=== PATIENT | female | born 1975 | race Caucasian/White ===

== ENCOUNTER 2019-04-25 12:59 | Outpatient (CLI) | payer OTHER, SELFPAY ==
--- NOTE | ~2019-04-25 | MM_ITS ---
EXAMINATION: MM screening flory BI w faustino HISTORY: Screening mammogram TECHNIQUE: Craniocaudal and mediolateral oblique 3-D tomosynthesis images were obtained and synthetic 2-D images were generated. CAD analysis was submitted and interpreted. COMPARISON: None, baseline BREAST PARENCHYMAL COMPOSITION: The breasts are heterogeneously dense, which may obscure small masses . FINDINGS: RIGHT BREAST: There is no evidence of suspicious mass, calcification, or architectural distortion to suggest malignancy. LEFT BREAST: Focal asymmetry is present in the posterior third of the upper breast. IMPRESSION: 1. Focal asymmetry of the left breast. 2. Additional mammographic views and possible breast ultrasound are recommended to evaluate for malig izzy and establish a baseline given that this is the first mammographic examination. BI-RADS Category 0: Incomplete: Needs additional imaging evaluation. 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 Focal asymmetry of the left breast. 2. Additional mammographic views and possible breast ultrasound are recommended to evaluate for malignancy and establish a baseline given that this is the fir st mammographic examination. BI-RADS Category 0: Incomplete: Needs additional imaging evaluation.
== END 2019-04-25 13:00 | disposition home or self-care (01) ==
PROVIDERS: PCP Family Medicine; Visit Provider Nurse Practitioner Obstetrics & Gynecology
DX: Z12.31 Encounter for screening mammogram for malignant neoplasm of breast (principal)
CPT/HCPCS: 77063; 77067

== ENCOUNTER 2019-05-03 09:49 | Outpatient (CLI) | payer OTHER, SELFPAY ==
--- NOTE | ~2019-05-03 | MMUS_ITS ---
EXAMINATION: MM diagnostic flory LT w faustino, US breast LT limited HISTORY: Focal asymmetry of the left breast on baseline screening mammogram TECHNIQUE: Additional 3-D tomosynthesis images of the left breast were performed and synthetic 2-D im ages were generated. CAD analysis was submitted and interpreted. High resolution limited left breast ultrasound was performed. COMPARISON: 02/24/2020 FINDINGS: MAMMOGRAPHIC FINDINGS: No definite focal asymmetry persists in the left breast with spot compression views. There is no susp icious calcification or architectural distortion. ULTRASOUND: There is no evidence of focal abnormal solid or cystic lesion in the vicinity of the mammographic fin ding in question. IMPRESSION: 1. No mammographic or sonographic evidence of malignancy. 2. Recommend routine screening mammography in one year. BI-RADS Category 1: Negative Reviewed, dictated and finalized at location A. SPRAYER IMPRESSION: 1. No mammographic or sonographic evidence of malignancy. 2. Recommend routine screening mammography in one year. BI-RADS Category 1: Negative
== END 2019-05-03 09:50 | disposition home or self-care (01) ==
LOC: CHSIMG 09:51
PROVIDERS: Visit Provider Nurse Practitioner Obstetrics & Gynecology
DX: R92.8 Other abnormal and inconclusive findings on diagnostic imaging of breast (principal)
CPT/HCPCS: 76642; 77061; 77065; G0279

== ENCOUNTER 2020-05-05 10:48 | Outpatient (CLI) | payer OTHER, SELFPAY ==
--- NOTE | ~2020-05-05 | MM_ITS ---
EXAMINATION: MM screening flory BI w faustino HISTORY: Screening mammogram TECHNIQUE: Craniocaudal and mediolateral oblique 3-D tomosynthesis images were obtained and synthetic 2-D images were generated. CAD analysis was submitted and interpreted. COMPARISON: May 03, 2019 left diagnostic digital mammogram and limited left breast ultrasound 04/25/2019 bilateral digital screening mammogram BREAST PARENCHYMAL COMPOSITION: The breasts are heterogeneously dense, which may obscure small masses . FINDINGS: There is no evidence of suspicious mass, calcification, or architectural distortion to sugg est malignancy in either breast. There has been no suspicious interval change. IMPRESSION: 1. No mammographic evidence of malignancy. 2. Recommend routine screening mammography in one year. BI-RADS Category 1: Negative Reviewed, dictated and finalized at location A. [place] [employer]
== END 2020-05-05 10:49 | disposition home or self-care (01) ==
LOC: CHSIMG 10:49
PROVIDERS: Visit Provider Nurse Practitioner Obstetrics & Gynecology
DX: Z12.31 Encounter for screening mammogram for malignant neoplasm of breast (principal)
CPT/HCPCS: 77063; 77067

== ENCOUNTER 2021-06-11 11:46 | Outpatient (CLI) | payer OTHER, SELFPAY ==
--- NOTE | ~2021-06-11 | MM_ITS ---
EXAMINATION: MM screening [facility] BI w faustino HISTORY: Screening mammogram TECHNIQUE: Craniocaudal and mediolateral oblique 3-D tomosynthesis images were obtained and synthetic 2-D images were generated. CAD analysis was submitted and interpreted. COMPARISON: 05/15/2020, 05/03/2019, 04/25/2019 BREAST PARENCHYMAL COMPOSITION: There are scattered areas of fibroglandular density. FINDINGS: There is no suspicious mass, calcification, or architectural distortion to suggest malignan cy in either breast. There has been no suspicious interval change. IMPRESSION: 1. No mammographic evidence of malignancy. 2. Recommend routine screening mammography in one year. BI-RADS Category 1: Negative Reviewed, dictated and finalized at location A.
== END 2021-06-11 11:47 | disposition home or self-care (01) ==
LOC: CHSIMG 11:48
PROVIDERS: PCP Nurse Practitioner Family; Visit Provider Obstetrics & Gynecology Gynecology
DX: Z12.31 Encounter for screening mammogram for malignant neoplasm of breast (principal)
CPT/HCPCS: 77063; 77067

== ENCOUNTER 2022-06-17 11:43 | Outpatient (CLI) | payer OTHER, SELFPAY ==
--- NOTE | ~2022-06-17 | MM_ITS ---
EXAMINATION: MM screening flory BI w faustino HISTORY: Screening TECHNIQUE: Craniocaudal and mediolateral oblique 3-D tomosynthesis images were obtained and synthetic 2-D images were generated. CAD analysis was submitted and interpreted. COMPARISON: Comparison to multiple prior studies sequentially, with oldest reviewed study dated 04/25. BREAST PARENCHYMAL COMPOSITION: There are scattered areas of fibroglandular density. FINDINGS: There is no evidence of suspicious mass, calcification, or architectural distortion to sugg est malignancy in either breast. There has been no suspicious interval change. IMPRESSION: 1. No mammographic evidence of malignancy. 2. Recommend routine screening mammography in one year. BI-RADS Category 1: Negative Reviewed, dictated and finalized at location A.
== END 2022-06-17 11:44 | disposition home or self-care (01) ==
LOC: CHSIMG 11:46
PROVIDERS: PCP Family Medicine; Visit Provider Nurse Practitioner Obstetrics & Gynecology
DX: Z12.31 Encounter for screening mammogram for malignant neoplasm of breast (principal)
CPT/HCPCS: 77063; 77067

== ENCOUNTER 2022-07-12 00:29 | Day surgery (SDC) | payer OTHER, SELFPAY ==
[2022-07-05 10:20] VITALS: BMI 35.5
--- NOTE | 2022-07-05 10:25 | PC.NURSE ---
Report to the Outpatient Waiting Room, entrance under the green pavilion located off [facility], at time 0730 on date 07/12/22. Planned Procedure Time: 0930. Time changes happen often and if your time is changed the preop area will call you the afternoon before. - You and your visitor will be asked to self-screen and do not enter if you have any COVID symptoms. - A mask is optional within the hospital at this time. Patients may have clear liquids (water, carbonated beverages, clear teas, apple juice) until 3 hours prior to surgery with a maximum of 20 ounces. - No food from midnight until time of surgery Take the following medications with a SIP of water the morning of surgery: N/A DO NOT STOP ANY OF YOUR OTHER PRESCRIPTION MEDICATIONS PRIOR TO SURGERY EXCEPT THE FOLLOWING Medications to discontinue per physician: N/A Date to take last dose: N/A Please no make-up, nail maori, hairspray, perfume, deodorant, or body powder the day of surgery. No jewelry (including any body piercings) or valuables the day of surgery, leave them at home. Please take a shower or bath the night before, or the morning of, surgery with an antibacterial soap. Wear comfortable, loose fitting clothing. - Jewelry must be removed prior to entering the operating room. Rings and piercings that are not removed may be cut off. - The hospital will not accept responsibility for valuables. - Please leave all valuables, including medications, at home the day of surgery. If you are going home after surgery, a licensed milk pickup truck driver must drive you home. - NO public transportation without another adult if you receive anesthesia. - We recommend that an adult stay with you for 24 hours following discharge. - We also recommend that you do not drive, make important decision, drink alcoholic beverages, or take any drugs that were not prescribed by your health care provider for at least 24 hours after your discharge time. Follow any additional instructions given to you from your surgeon. If you or anyone in your household have experienced Covid symptoms in the past week, please notify your surgeon or the nurse liaison at the phone number below for possible testing. Telephone instructions given to PT - SHANON THOMAS and asked if any additional questions and then verbalized understanding. Patient advised to call surgeon office or pre surgery nurse liaison [phone] if any additional questions.
[2022-07-12] VITALS (9 sets, daily range): BP systolic 128–162; BP diastolic 74–98; PULSE 61–84; RESP 13–16; TEMP 36.2–36.6; O2SAT 98–100
[2022-07-12] MEDS: LACTATED RINGERS 1,000 ML 30 ML IV CONT ×2 (08:15→11:20)
[2022-07-12] MEDS: ACETAMINOPHEN 500 MG TABLET 1000 MG PO (08:30)
[2022-07-12] MEDS: KETOROLAC 15 MG/ML VIAL (*BKC) IV PUSH (08:30)
--- NOTE | 2022-07-12 08:36 | P.PNAN_ITS ---
Anes - Initial Pre Proc Eval Procedure: Operation Date: 07/12/22 09:30 Proposed Procedures p Hysteroscopy Dilation and Curettage, Cecilia Endometrial Ablation, - José Miguel Mchugh MD s Laparoscopic Right Ovarian Cystectomy, Bilateral Laparoscopic Salpingectomy - José Miguel Mchugh MD Date/Time: 07/12/22 08:36 Surgeon: José Miguel Mchugh MD Pre Op Diagnosis: menorrhagia, right ovarian cyst, desires steriliza Patient Data Age: 46 Gender: F Height: 1.68 m Weight: 99.8 kg Allergies Allergy/AdvReac Type Severity Reaction Status Date / Time No Known Allergies Allergy Verified 07/12/22 08:30 Home Medications Medication Instructions Recorded Confirmed Type levonorgestrel 21 mcg/24 hours (8 1 device intrauterine ONCE 05/20/20 07/12/22 History yrs) 52 mg intrauterine device (Mirena) Patient hx anesthesia problems: none Family hx anesthesia problems: none Results Review: All pre-operative results and documents have been reviewed as part of the pre- operative evaluation. 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 Informed Consent: The patient's anesthetic plan and its attendant risks and benefits were discussed with the patient/family/POA. Questions were solicited and answers provided to the satisfaction of the patient/family/POA.
--- NOTE | 2022-07-12 09:36 | WPDHPUPDATE1 ---
History and Physical Update Update Date/Time: 07/12/22 09:36 History and Physical has been reviewed, including an updated exam of the patient. There are NO changes in the patient's condition. Risks, benefits, and alternatives have been discussed and questions answered. Patient agrees to proceed with procedure.
[2022-07-12] MEDS: KETOROLAC 30 MG/ML VIAL (*BKC) 15 MG IV PUSH (10:55)
--- NOTE | 2022-07-12 11:11 | W.PM.PROC2 ---
Procedure Note - Detailed Date of Procedure 07/12/22 Pre-op Diagnosis menorrhagia, right ovarian cyst, desires sterilization Post-op Diagnosis Same Procedure Performed Laparoscopic bilateral salpingectomy, right ovarian cystectomy, endometrial ablation with hysteroscopy. Surgeon José Miguel Mchugh MD Anesthesia MAC Indications Severe menorrhagia Findings Normal vulva vagina and cervix. Normal endometrium. Endometrium is thin, there are nodular cystic lesions in the posterior vagina the are benign. Description of Procedure The patient was taken the operating room.? She was prepped and draped in the dorsal lithotomy position after induction of general anesthesia.? A 5 mm skin incision was made in the left upper quadrant of the abdominal skin.? A 5 mm trocar was inserted the intra-abdominal cavity under direct visualization of the scope.? Pneumoperitoneum was achieved.? A 5 mm trocar was inserted in the left lower quadrant identical fashion.? A 5 mm infraumbilical trocar was inserted in identical fashion as well.? The bilateral fallopian tubes were removed.? This was done by using a LigaSure cautery.? The mesosalpinx adjacent to the tube was cauterized transected with LigaSure.? This was initiated in the area the ovary and in a stepwise fashion moved medially to the area of the cornu of the uterus.? Once there the fallopian tube was cauterized and transected.? This was done in identical fashion on each side.? The fallopian tubes were taken out through the left lower quadrant trocar site. Right OC ovarian cystectomy performed. The dome of the cyst was removed with LigaSure cautery. The cyst capsule was peeled out of the cut surface. The cut surfaces and cauterized. All the tissue was taken at the left lower quadrant trocar site.? The pneumoperitoneum was reduced.? The trocars removed.? The skin was closed with subcuticular 4 Monocryl and covered with Dermabond.? A speculum was placed in the vagina. Cervix grasped with a tenaculum. The cervix was dilated to about 1 cm. The hysteroscope was inserted. The above findings were noted. Endometrial curettage was performed with a medium-size curette. All surfaces of the endometrium were affected by the curettage. The specimens were collected and sent to pathology. Measurements were taken of the uterus and cervix. The uterine length was then entered into the hand piece of the Cecilia device. The device was inserted into the intrauterine cavity. The array of the device was expanded. The balloon cuff was inflated. A good seal was achieved. The energy and safety cycles were initiated and completed. The array was collapsed and the instrument was withdrawn after deflating the balloon cuff. Hysteroscope was reinserted. Above findings were noted. The hysteroscope was removed. The patient tolerated the procedure well. The speculum and tenaculum were removed. She was taken to recovery in stable condition. Sponge lap and needle counts were correct x2. Estimated Blood Loss 15 Pathology Yes Complications No immediate complications Condition Stable Disposition Same day
[2022-07-12] MEDS: oxyCODONE HCL (*CRX) 5 MG TAB IR PO (12:15)
== END 2022-07-12 13:07 | disposition home or self-care (01) ==
PROVIDERS: PCP Family Medicine; Visit Provider Obstetrics & Gynecology
PROC: 0U5B8ZZ Destruction of Endometrium, Via Natural or Artificial Opening Endoscopic (ICD-10-PCS; CPT 58563; principal; 2022-07-12 09:30)
PROC: (CPT 49320; 2022-07-12 09:30)
DX: N92.0 Excessive and frequent menstruation with regular cycle (principal); N83.201 Unspecified ovarian cyst, right side; Z30.2 Encounter for sterilization; N89.8 Other specified noninflammatory disorders of vagina; N83.8 Other noninflammatory disorders of ovary, fallopian tube and broad ligament; E66.9 Obesity, unspecified; Z68.35 Body mass index [BMI] 35.0-35.9, adult
CPT/HCPCS: 58661; 58563; 58301; 88302; 88305; A9270; J1100; J1885; J2250; J2704; J3010; J7030; J7120

== ENCOUNTER 2023-01-12 11:14 | Outpatient (CLI) | payer OTHER, SELFPAY | END 2023-01-12 11:15 | disposition home or self-care (01) | PROVIDERS: PCP Family Medicine; Visit Provider Obstetrics & Gynecology | DX: N92.0 Excessive and frequent menstruation with regular cycle (principal) | CPT/HCPCS: 36415; 86850; 86900; 86901 ==

== ENCOUNTER 2023-02-04 10:55 | Outpatient (CLI) | payer OTHER, SELFPAY | END 2023-02-04 10:56 | disposition home or self-care (01) | LOC: ANHLAB 10:57 | PROVIDERS: PCP Family Medicine; Visit Provider Obstetrics & Gynecology | DX: N92.0 Excessive and frequent menstruation with regular cycle (principal); Z01.818 Encounter for other preprocedural examination | CPT/HCPCS: 36415; 86850; 86900; 86901 ==

== ENCOUNTER 2023-02-08 01:21 | Day surgery (SDC) | payer OTHER, SELFPAY ==
[2023-01-03 14:46] VITALS: BMI 35.5
--- NOTE | 2023-01-03 14:50 | PC.NURSE ---
Report to the Outpatient Waiting Room, entrance under the green pavilion located off [facility], at time 6:00 on date 01/18/23. Planned Procedure Time: 7:30. Time changes happen often and if your time is changed the preop area will call you the afternoon before. - You and your visitor will be asked to self-screen and do not enter if you have any COVID symptoms. - A mask is optional within the hospital at this time. Patients may have clear liquids (water, carbonated beverages, clear teas, apple juice) until 3 hours prior to surgery (4:30) with a maximum of 20 ounces. - No food from midnight until time of surgery Take the following medications with a SIP of water the morning of surgery: N/A DO NOT STOP ANY OF YOUR OTHER PRESCRIPTION MEDICATIONS PRIOR TO SURGERY ?EXCEPT THE FOLLOWING Medications to discontinue per physician: N/A Date to take last dose: N/A Please no make-up, nail italian, hairspray, perfume, deodorant, or body powder the day of surgery. No jewelry (including any body piercings) or valuables the day of surgery, leave them at home. Please take a shower or bath the night before, or the morning of, surgery with an antibacterial soap. Wear comfortable, loose fitting clothing. - Jewelry must be removed prior to entering the operating room. Rings and piercings that are not removed may be cut off. - The hospital will not accept responsibility for valuables. - Please leave all valuables, including medications, at home the day of surgery. If you are going home after surgery, a licensed cdl b driver must drive you home. - NO public transportation without another adult if you receive anesthesia. - We recommend that an adult stay with you for 24 hours following discharge. - We also recommend that you do not drive, make important decision, drink alcoholic beverages, or take any drugs that were not prescribed by your health care provider for at least 24 hours after your discharge time. Follow any additional instructions given to you from your surgeon. If you or anyone in your household have experienced Covid symptoms in the past week, please notify your surgeon or the nurse liaison at the phone number below for possible testing. Telephone instructions given to PT - SHANON THOMAS and asked if any additional questions and then verbalized understanding. Patient advised to call surgeon office or pre surgery nurse liaison [phone] if any additional questions.
--- NOTE | 2023-01-17 09:38 | WPDANESEPPF ---
Anes - Initial Pre Proc Eval Procedure: Operation Date: 01/18/23 07:30 Proposed Procedures p Total Laparoscopic Hysterectomy - José Miguel Mchugh MD Date/Time: 01/17/23 09:38 Surgeon: José Miguel Mchugh MD Pre Op Diagnosis: menorrhagia Patient Data Age: 47 Gender: F Height: 1.68 m Weight: 99.8 kg Allergies Allergy/AdvReac Type Severity Reaction Status Date / Time No Known Allergies Allergy Verified 01/03/23 14:45 Home Medications Medication Instructions Recorded Confirmed Type No Home Medications 01/03/23 01/03/23 History Results Review: All pre-operative results and documents have been reviewed as part of the pre-operative evaluation. 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 Informed Consent: The patient's anesthetic plan and its attendant risks and benefits were discussed with the patient/family/POA. Questions were solicited and answers provided to the satisfaction of the patient/family/POA.
--- NOTE | 2023-01-18 07:18 | WPDHPUPDATE1 ---
History and Physical Update Update Date/Time: 01/18/23 07:18 History and Physical has been reviewed, including an updated exam of the patient. There are NO changes in the patient's condition. Risks, benefits, and alternatives have been discussed and questions answered. Patient agrees to proceed with procedure.
--- NOTE | 2023-02-01 14:37 | PC.NURSE ---
Report to the Outpatient Waiting Room, entrance under the green pavilion located off [facility], at time 0800 on date 02/08/23_. Planned Procedure Time: _1000_. Time changes happen often and if your time is changed the preop area will call you the afternoon before. - You and your visitor will be asked to self-screen and do not enter if you have any COVID symptoms. - A mask is optional within the hospital at this time. Patients may have clear liquids (water, carbonated beverages, clear teas, apple juice) until 3 hours prior to surgery with a maximum of 20 ounces. - No food from midnight until time of surgery - Infants may have breast milk until 4 hours before surgery, formula 6 hours prior to surgery. - Children will be allowed to drink immediately following surgery. If applicable, please bring a bottle or sippy cup to assist with drinking. Juice, water, soda, and popsicles are readily available. For infants on formula, please bring formula the day of surgery. Pacifiers are allowed. Take the following medications with a SIP of water the morning of surgery: ___NONE DO NOT STOP ANY OF YOUR OTHER PRESCRIPTION MEDICATIONS PRIOR TO SURGERY ?EXCEPT THE FOLLOWING Medications to discontinue per physician NONE Date to take last dose Please no make-up, nail amharic, hairspray, perfume, deodorant, or body powder the day of surgery. No jewelry (including any body piercings) or valuables the day of surgery, leave them at home. Please take a shower or bath the night before, or the morning of, surgery with an antibacterial soap. Wear comfortable, loose fitting clothing. Children are encouraged to wear pajamas. - Jewelry must be removed prior to entering the operating room. Rings and piercings that are not removed may be cut off. - The hospital will not accept responsibility for valuables. - Please leave all valuables, including medications, at home the day of surgery. If you are going home after surgery, a licensed ross carrier driver must drive you home. - NO public transportation without another adult if you receive anesthesia. - We recommend that an adult stay with you for 24 hours following discharge. - We also recommend that you do not drive, make important decision, drink alcoholic beverages, or take any drugs that were not prescribed by your health care provider for at least 24 hours after your discharge time. For Pediatric surgeries, we recommend two adults accompany the child home. Follow any additional instructions given to you from your surgeon. If you or anyone in your household have experienced Covid symptoms in the past week, please notify your surgeon or the nurse liaison at the phone number below for possible testing. TelephONE PATIENT__and asked if any additional questions and then verbalized understanding. Patient advised to call surgeon office or pre surgery nurse liaison [phone] if any additional questions.
--- NOTE | 2023-02-01 14:46 | PC.NURSE ---
PT DENIES ANY CHANGE IN HEALTH OR MEDICATION SINCE PREVIOUS INTERVIEW, NEW INSTRUCTIONS GIVEN, DENIES ANY QUESTIONS
[2023-02-08] VITALS (11 sets, daily range): BP systolic 109–155; BP diastolic 60–100; PULSE 65–84; RESP 10–18; TEMP 36.2–37; O2SAT 93–100
--- NOTE | 2023-02-08 08:28 | WPDANESEPPF ---
Anes - Initial Pre Proc Eval Procedure: Operation Date: 02/08/23 10:00 Proposed Procedures p Total Laparoscopic Hysterectomy - José Miguel Mchugh MD Date/Time: 02/08/23 08:28 Surgeon: José Miguel Mchugh MD Pre Op Diagnosis: menorrhagia Patient Data Age: 47 Gender: F Height: 1.68 m Weight: 99.8 kg Allergies Allergy/AdvReac Type Severity Reaction Status Date / Time No Known Allergies Allergy Verified 01/03/23 14:45 Home Medications Medication Instructions Recorded Confirmed Type progesterone micronized 200 mg 200 mg PO DAILY 02/01/23 02/01/23 History capsule Patient hx anesthesia problems: none Family hx anesthesia problems: none Results Review: All pre-operative results and documents have been reviewed as part of the pre-operative evaluation. 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 Informed Consent: The patient's anesthetic plan and its attendant risks and benefits were discussed with the patient/family/POA. Questions were solicited and answers provided to the satisfaction of the patient/family/POA.
[2023-02-08] MEDS: KETOROLAC 15 MG/ML VIAL (*BKC) IV PUSH (08:35)
[2023-02-08] MEDS: LACTATED RINGERS 1,000 ML 30 ML IV CONT ×2 (08:35→12:45)
[2023-02-08] MEDS: ACETAMINOPHEN 500 MG TABLET 1000 MG PO (08:35)
[2023-02-08] MEDS: SCOPOLAMINE 1.5 MG PATCH TRANSDERM (08:51)
--- NOTE | 2023-02-08 10:07 | WPDHPUPDATE1 ---
History and Physical Update Update Date/Time: 02/08/23 10:07 History and Physical has been reviewed, including an updated exam of the patient. There are NO changes in the patient's condition. Risks, benefits, and alternatives have been discussed and questions answered. Patient agrees to proceed with procedure.
--- NOTE | 2023-02-08 10:21 | W.PM.PROC2 ---
Procedure Note - Detailed Date of Procedure 02/08/23 Pre-op Diagnosis menorrhagia Post-op Diagnosis Same (Dense pelvic adhesions) Procedure Performed Total laparoscopic hysterectomy and right oophorectomy., adhesiolysis 45 minutes Surgeon José Miguel Mchugh MD Anesthesia General Indications Pelvic pain Findings Dense pelvic adhesions throughout the left adnexa from uterine fundus to uterine artery and bladder. Absent fallopian tubes, absent left ovary, normal right ovary Description of Procedure This patient was taken to the operating room. She was prepped and draped in the dorsal lithotomy position after induction of general anesthesia. The uterine manipulator and Ramin cup were placed. This was done with a speculum and tenaculum. The speculum was placed. The cervix was grasped with a tenaculum. The stay sutures were placed at 3 and 9:00 a.m.. The stay sutures of 0 Vicryl were brought through the appropriately sized Ramin cup. The tip of the ALEX manipulator was placed in the intrauterine cavity. The cup was slid into place around the cervix and into the fornices. It was locked into place. The sutures were then wrapped around the handle and tied under tension. A 5 mm skin incision was made in the left upper quadrant the abdomen. A 5 mm trocar was inserted into the intrauterine cavity under direct visualization of the scope. Pneumoperitoneum was achieved. A left lower quadrant 11 mm incision was made with scalpel. An 11 mm trocar was inserted into the anterior abdominal cavity under direct visualization the scope. A 5 mm infraumbilical incision was made with a scalpel and a 5 mm trocar was inserted the intra-abdominal cavity under direct visualization of the scope. Bilateral ureteral lysis was performed. This was done from the pelvic brim down to the uterine artery. This was done with careful dissection using sharp and blunt dissection. The infundibulopelvic ligaments were isolated after identification of the ureters bilaterally. These infundibulopelvic ligaments were cauterized and transected with LigaSure cautery. The para ovarian tissue was cauterized and transected with LigaSure cautery on the right. Moving around the ovary into the broad ligament the tissue was cauterized transected with LigaSure cautery. The round ligaments were cauterized transected with LigaSure cautery this was all done in a bilateral fashion. In a stepwise fashion along the lateral aspects of the uterus the round ligament and broad ligaments were cauterized transected down to the level of the uterine arteries. A bladder flap was created in the bladder was moved distally to the end of the cervix and over the Ramin cup. The bilateral uterine arteries were cauterized and transected. Colpotomy was then performed. In a circumferential fashion the vagina was transected using unipolar cautery. The incision was made down on the Ramin cup. The uterus, cervix, fallopian tubes and ovaries were taken out through the vagina. A pneumo occluder was placed in the vagina. On the left side extensive adhesiolysis was performed using sharp and blunt dissection along with LigaSure cautery and monopolar cautery. This was done to separate the uterus from the lateral pelvic sidewall, separate the ureter from the paracervical tissue, and 2 skeletonize the cervix. The vaginal cuff was closed with a 0 V lock suture in a running fashion. The pelvis was irrigated with copious amounts antibiotic irrigation. The ureters were again examined and found to be intact and flowing freely under the uterine arteries into the bladder. The bladder was intact. It was examined directly. The vagina was irrigated with Betadine solution after removal of the Pneumo occluder. The patient was taken to recovery room. She was stable condition. Sponge lap and needle counts were correct x2. Estimated Blood Loss 75 Drains Yes Packing No Pathology Yes Complications No immediate complications Conditio
[2023-02-08] MEDS: ceFAZolin 2 GM/D5W 50 ML 2 GM/50 ML BAG IVPB (10:50)
[2023-02-08] MEDS: ceFAZolin SODIUM 1 GM VIAL (11:18)
[2023-02-08] MEDS: fentaNYL CITRATE INJ (*CRX) 100 MCG/2 ML VIAL 25 MCG IV PUSH ×6 (12:51→13:15)
[2023-02-08] MEDS: HYDROmorphone HCL INJ (*CRX) 1 MG/ML SYR 0.5 MG IV PUSH ×2 (13:28→13:35)
[2023-02-08] MEDS: ONDANSETRON INJ 4 MG/2 ML VIAL IV PUSH (13:45)
--- NOTE | 2023-02-08 14:20 | ADMGEN ---
This patient, Corry Laureano, was admitted to OB 2nd Floor Room 283-00. Patient/family oriented to hospital policies and general routines including ID bracelet, bed and alarms, visiting hours, pain management, procedures, bathroom and other care routines, personal items, smoking policy, room service/diet, and visiting hours. Information on how to activate the Rapid Response Team has been discussed. Patient/Family are encouraged to report perceived risks to care and to ask questions if they do not understand what they are told or what they should do.
[2023-02-08] MEDS: DEXTROSE 5%/0.45% SOD CHL 1,000 ML 125 ML IV CONT (14:36)
[2023-02-08] MEDS: KETOROLAC 30 MG/ML VIAL (*BKC) IV PUSH (14:38)
[2023-02-08] MEDS: HYDROcodone/acetaminophen (*CRX) 5-325 MG TABLET 1 TAB PO ×2 (17:00→21:50)
[2023-02-09 04:40] VITALS: BP 110/68; PULSE 68; RESP 16; TEMP 36.6; O2SAT 97
--- NOTE | 2023-02-09 08:19 | PM.GYNPNOP ---
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 - A/P Postoperative Procedures: Procedures Operation Date: 02/08/23 10:00 Actual Procedure Side Surgeon p Total Laparoscopic Hysterectomy Not Applicable José Miguel Mchugh MD Postoperative day: 1 Postoperative status: doing well Postoperative plan: see orders Time Spent With Patient Time: Total time spent is greater than 50% in coordination of care (as documented) at patient's floor/unit and/or counseling patient: Time with patient: less than 15 minutes 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- PN:Subj Post-Op Subjective Date/time seen: 02/09/23 08:19 Subjective: patient reports feeling better, patient has no complaints and pain is well controlled Exam Const: General: healthy appearing, comfortable and no acute distress Resp: Auscultation: clear to auscultation bilaterally, no rales, no rhonchi and no wheezes Cardio: Rate: regular rate Heart sounds: no click, no murmurs and no rubs GI: Inspection: non-distended Auscultation: normal bowel sounds Extrem: General: normal to inspection, no pedal edema and no calf tenderness 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 - PN: Obj Data Vital Signs Vital Signs: Vital Signs - 24 hr 02/08/23 08:35 02/08/23 12:45 02/08/23 13:00 Temperature 97.2 F L 98.6 F Pulse Rate 84 81 68 Respiratory Rate 14 10 L 16 Blood Pressure 137/88 155/100 H 135/71 Pulse Oximetry 98 100 100 Oxygen Delivery Room Air Simple Face Mask Simple Face Mask Oxygen Flow Rate 8 8 02/08/23 13:15 02/08/23 13:30 02/08/23 13:45 Temperature Pulse Rate 74 80 69 Respiratory Rate 12 18 12 Blood Pressure 125/70 121/60 119/69 Pulse Oximetry 96 99 94 Oxygen Delivery Room Air Room Air Room Air Oxygen Flow Rate 02/08/23 14:00 02/08/23 14:14 02/08/23 14:20 Temperature 98.3 F Pulse Rate 68 71 69 Respiratory Rate 12 12 16 Blood Pressure 129/60 122/61 115/69 Pulse Oximetry 94 93 97 Oxygen Delivery Room Air Room Air Oxygen Flow Rate 02/08/23 14:30 02/08/23 19:44 02/08/23 19:44 Temperature 97.6 F Pulse Rate 66 66 Respiratory Rate 18 16 Blood Pressure 109/70 Pulse Oximetry 99 99 Oxygen Delivery Room Air Room Air Oxygen Flow Rate 02/08/23 23:28 02/08/23 23:28 02/09/23 04:40 Temperature 97.7 F 97.8 F Pulse Rate 65 65 68 Respiratory Rate 16 16 16 Blood Pressure 112/63 110/68 Pulse Oximetry 96 96 97 Oxygen Delivery Room Air Oxygen Flow Rate 02/09/23 04:40 Temperature Pulse Rate 68 Respiratory Rate 16 Blood Pressure Pulse Oximetry 97 Oxygen Delivery Room Air Oxygen Flow Rate Intake/Output Intake/Output: Intake & Output 02/06/23 02/07/23 02/08/23 02/09/23 23:59 23:59 23:59 23:59 Intake Total 1550 450 Output Total 1200 Balance 350 450 Meds/Results Medications: Active Medications Generic Name Dose Route Start Last Admin Trade Name Freq PRN Reason Stop Dose Admin Hydrocodone Bitart/Acetaminophen 1 tab 02/08/23 14:21 02/08/23 21:50 Hydrocodone/Acetaminophen (*Crx) 5-325 Mg Tablet PO 1 tab Q3H PRN Administration Pain Rated 5 or Less Hydrocodone Bitart/Acetaminophen 1 tab 02/08/23 14:21 Hydrocodone/Acetaminophen (*Crx) 10-325 Mg Tablet PO Q3H PRN Pain Rated 6 or Greater Dextrose/Sodium Chloride 1,000 mls @ 125 mls/hr 02/08/23 14:21 02/09/23 06:50 Dextrose 5% Sodium Chloride 0.45% IV CONT Not Given .Q8H SAMY Ibuprofen 600 mg 02/08/23 14:21 Ibuprofen 600 Mg Tablet PO Q6H PRN Cramping Ketorolac Tromethamine 30 mg 02/08/23 14:21 02/08/23 14:38 Ketorolac 30 Mg/Ml Vial (*Bkc) IV PUSH 02/13/23 14:20 30 mg Q6H PRN Administration Pain Rated 4-6 Naloxone HCl 0.1 mg 02/08/23 14:21 Naloxone Hcl 0.4 Mg/Ml Vial IV PUSH Q2M PRN Respiratory rate less than 10 Ondansetron HCl 4 mg 02/08/23 14:21 Ondansetron Inj 4 Mg/2 Ml Vial IV PUSH Q6H PRN Nausea And Vomiting
[2023-02-09] MEDS: IBUPROFEN 600 MG TABLET PO (08:20)
[2023-02-09] MEDS: HYDROcodone/acetaminophen (*CRX) 5-325 MG TABLET 1 TAB PO (08:20)
[2023-02-09 08:30] VITALS: BP 129/72; PULSE 63; RESP 16; TEMP 36.3; O2SAT 100
== END 2023-02-09 10:03 | disposition home or self-care (01) ==
LOC: ANHSURGERY 07:44 → ANHOB2 14:53
PROVIDERS: PCP Family Medicine; Visit Provider Obstetrics & Gynecology
PROC: 0UT9FZZ Resection of Uterus, Via Natural or Artificial Opening With Percutaneous Endoscopic Assistance (ICD-10-PCS; CPT 58571; principal; 2023-02-08 10:00)
DX: N92.0 Excessive and frequent menstruation with regular cycle (principal); N73.6 Female pelvic peritoneal adhesions (postinfective); N80.03 Adenomyosis of the uterus; D25.1 Intramural leiomyoma of uterus; E66.9 Obesity, unspecified; Z68.35 Body mass index [BMI] 35.0-35.9, adult; Z79.891 Long term (current) use of opiate analgesic; Z90.79 Acquired absence of other genital organ(s); Z90.721 Acquired absence of ovaries, unilateral; Z86.79 Personal history of other diseases of the circulatory system; Z80.3 Family history of malignant neoplasm of breast; Z80.1 Family history of malignant neoplasm of trachea, bronchus and lung; Z80.41 Family history of malignant neoplasm of ovary; Z23 Encounter for immunization
CPT/HCPCS: 58571; 88307; 90471; 90686; 99199; A9270; G0008; J0330; J0690; J1100; J1170; J1885; J2250; J2405; J2704; J3010; J7030; J7120

== ENCOUNTER 2023-07-07 07:23 | Outpatient (CLI) | payer OTHER, SELFPAY ==
--- NOTE | ~2023-07-07 | MM_ITS ---
EXAMINATION: MM screening [facility] BI w faustino HISTORY: Screening TECHNIQUE: Craniocaudal and mediolateral oblique 3-D tomosynthesis images were obtained and synthetic 2-D images were generated. CAD analysis was submitted and interpreted. COMPARISON: Comparison to multiple prior studies sequentially, with oldest reviewed study dated 04/25. BREAST PARENCHYMAL COMPOSITION: Not dense: There are scattered areas of fibroglandular density. FINDINGS: There is no evidence of suspicious mass, calcification, or architectural distortion to sugg est malignancy in either breast. There has been no suspicious interval change. IMPRESSION: 1. No mammographic evidence of malignancy. 2. Recommend routine screening mammography in one year. BI-RADS Category 1: Negative Reviewed, dictated and finalized at location A.
== END 2023-07-07 07:24 | disposition home or self-care (01) ==
LOC: CHSIMG 07:25
PROVIDERS: PCP Family Medicine; Visit Provider Family Medicine
DX: Z12.31 Encounter for screening mammogram for malignant neoplasm of breast (principal)
CPT/HCPCS: 77063; 77067

== ENCOUNTER 2023-10-23 16:58 | Outpatient (CLI) | payer OTHER, SELFPAY ==
[2023-10-23 17:12] LABS: Basophils Absolute Auto 0.04 K/mm3 (0.00-0.10); Basophils Percent Auto 0.3 % (0.0-1.0); Eosinophils Absolute Auto 0.26 K/mm3 (0.02-0.50); Eosinophils Percent Auto 2.3 % (1.0-6.0); Hematocrit 37.1 % (35.0-49.0); Hemoglobin 12.6 g/dL (12.0-15.0); Immature Granulocyte Absolute 0.04 K/mm3 (0.00-0.00); Immature Granulocyte Percent A 0.3 % (0.0-0.0); Lymphocytes Absolute Auto 2.93 K/mm3 (1.10-4.50); Lymphocytes Percent Auto 25.6 % (18.0-42.0); Mean Corpuscular Hemoglobin 28.6 pg (27.0-31.0); Mean Corpuscular Volume 84.3 fL (78.0-102.0); Mean Platelet Volume 10.1 fl (9.2-11.8); Monocytes Percent Auto 4.4 % (2.0-11.0); Neutrophils Absolute Auto 7.68 K/mm3 (1.70-7.20); Neutrophils Percent Auto 67.1 % (50.0-70.0); Platelet Count Result 353 K/mm3 (150-420); Red Cell Distribution Width 13.5 % (11.6-14.4); White Blood Count 11.5 K/mm3 (4.8-10.8)
[2023-10-23 17:33] LABS: Hemoglobin A1C 5.5 % (<5.7)
[2023-10-23 17:53] LABS: Alanine Aminotransferase 31 U/L (14-59); Albumin Level 3.8 g/dL (3.4-5.0); Alkaline Phosphatase 110 U/L (46-116); Anion Gap 10 mmol/L (4-12); Aspartate Amino Transferase 19 U/L (15-37); Bilirubin,Total 0.2 mg/dL (0.00-1.00); Blood Urea Nitrogen 12 mg/dL (7-18); Calcium 8.9 mg/dL (8.5-10.1); Carbon Dioxide 28 mmol/L (21-32); Chloride 101 mmol/L (98-108); Cholesterol 226 mg/dL (0-200); Estimated Glomerular Filt Rate > 60; Glucose 95 mg/dL (70-99); HDL Direct 47 mg/dL (40-60); LDL Cholesterol Calculated 134 mg/dL (<130); Osmolality Calculated 287 mOsm/kg (285-295); Potassium 3.9 mmol/L (3.5-5.1); Sodium 139 mmol/L (136-145); Total Protein 7.3 g/dL (6.4-8.2); Triglycerides 225 mg/dL (0-150)
[2023-10-23 17:54] LABS: Thyroid Stimulating Hormone Reflex 2.31 u/IU/mL (0.36-3.74)
== END 2023-10-23 16:59 | disposition home or self-care (01) ==
LOC: CHSLAB 17:01
PROVIDERS: PCP Nurse Practitioner Family; Visit Provider Nurse Practitioner Family
DX: Z00.00 Encounter for general adult medical examination without abnormal findings (principal)
CPT/HCPCS: 36415; 80053; 80061; 83036; 84443; 85025

== ENCOUNTER 2023-11-25 09:16 | Outpatient (CLI) | payer OTHER, SELFPAY ==
[2023-11-25 09:27] LABS: Hematocrit 37.5 % (35.0-49.0); Hemoglobin 12.6 g/dL (12.0-15.0); Mean Corpuscular HGB Conc 33.6 g/dL (32-36); Mean Corpuscular Hemoglobin 28.5 pg (27.0-31.0); Mean Corpuscular Volume 84.8 fL (78.0-102.0); Mean Platelet Volume 10.9 fl (9.2-11.8); Platelet Count Result 293 K/mm3 (150-420); Red Blood Count 4.42 M/mm3 (4.20-5.40); Red Cell Distribution Width 13.2 % (11.6-14.4); White Blood Count 9.1 K/mm3 (4.8-10.8)
== END 2023-11-25 09:17 | disposition home or self-care (01) ==
LOC: CHSLAB 09:16
PROVIDERS: PCP Nurse Practitioner Family; Visit Provider Nurse Practitioner Family
DX: D72.829 Elevated white blood cell count, unspecified (principal)
CPT/HCPCS: 36415; 85027

== ENCOUNTER 2024-07-10 08:45 | Outpatient (CLI) | payer OTHER, SELFPAY ==
--- NOTE | ~2024-07-10 | MM_ITS ---
EXAMINATION: MM screening flory BI w faustino HISTORY: Screening TECHNIQUE: Craniocaudal and mediolateral oblique 3-D tomosynthesis images were obtained and synthetic 2-D images were generated. CAD analysis was submitted and interpreted. COMPARISON: Comparison to multiple prior studies sequentially, with oldest reviewed study dated 04/25. BREAST PARENCHYMAL COMPOSITION: Not dense: There are scattered areas of fibroglandular density. FINDINGS: There is no evidence of suspicious mass, calcification, or architectural distortion to sugg est malignancy in either breast. There has been no suspicious interval change. IMPRESSION: 1. No mammographic evidence of malignancy. 2. Recommend routine screening mammography in one year. BI-RADS Category 1: Negative Reviewed, dictated and finalized at location []
--- OUTSIDE RECORDS SUMMARY | 2024-07-10 09:08 | XMS_ITS | Clinical Summary ---
Author Organization [facility] [employer] Address [address] [place] [address] Care Team Providers Care Captain'S Assistant Name Role Phone Carlos Farrar DO Primary Care Provider [phone] Source Comments [facility] [employer],non-owned Affiliates and Associated Physician Practices is amultiple site organization consisting of ambulatory clinics and hospital sitesin [place], [place], [place] and [place]. This disclosure is being madepursuant to the Care Everywhere program and may not contain all information available regarding this patient. Last updated 17.[facility] [employer] Social History Tobacco Use Types Packs/Day Years Used Date Smoking Tobacco: Never Assessed Comments Unknown Sex and Gender Information Value Date Recorded Sex Assigned at Not on file Legal Sex Female 1:01 PM CDT Gender Identity Not on file Sexual Orientation Not on file Plan of Treatment Health Maintenance Due Date Last Done Comments COLOGUARD (AGES 45-75) - COL ON CA SCREENING 1977 COLON MONITORING 1977 COLONOSCOPY - COLON CA SCREENING 1977 CT COLONOGRAPHY - COLON CA SCREENING 1977 Colorectal Cancer Screening 1977 FIT - COLON CA SCREENING 1977 FLEX SIG - COLON CA SCREENING 1977 LIPID TESTING 1977 MAMMOGRAM 1977 PAP SMEAR 1977 HIV SCREENING 1992 HEPATITIS C SCREENING 09/19/1995 DTAP/TDAP/TD VACCINES (1 - Tdap) 1996 HEPATITIS B VACCINE (1 of 3 - 19+ 3-dose series) 1996 COVID-19 VACCINE (1 - 2023-2 5 season) 2023 DEPRESSION SCREENING 03/27/2024 INFLUENZA VACCINE (Season Ended) 2024 ZOSTER VACCINE (1 of 2) 09/24/2027 HIB VACCINE Aged Out No longer eligi ble based on patient's age to complete this topic HPV VACCINE Aged Out No longer eligi ble based on patient's age to complete this topic MENINGOCOCCAL (Group B) VACC INE SHARED DECISION-MAKING Aged Out No longer eligibl e based on patient's age to complete this topic MENINGOCOCCAL GROUPS A/C/Y/W VACCINE Aged Out No longer eligible b ased on patient's age to complete this topic PNEUMOCOCCAL VACCINE Aged Out No long er eligible based on patient's age to complete this topic Insurance [address] [place], [place] [address] [facility] [place]: [address] [phone] Care Teams Captain'S Assistant Relationship Specialty Start Date End Date Carlos Farrar DO [address] [place], [place] [id number] PCP - General 07/26/22
--- OUTSIDE RECORDS SUMMARY | 2024-07-10 09:08 | XMS_ITS | Data Portability ---
Author Organization [facility] Address [address] [place] [address] Care Team Providers Care Loans Officer Name Role Phone ANNALISA CORDON Primary Care Provider [phone] Assessment Encounter Date Assessment Date Assessment LastModified by Organization Details LastModified Time 10/18/2023 10/18/2023 Annual gynecological exam performed. Patient will come back in a year unless there are new symptoms. Not available 10/18/2023 10:51:54 Plan of Treatment Reminders Order Date Submit Date Provider Last Modified By Organization Details Last Modified Time Details Appointments None recorded. Lab None recorded. Referral None recorded. Procedures None recorded. Surgeries total laparoscopi c hysterectom y (SURG) 2022 023 [email or web address] [facility], [facility], [place], [address], 12:36:03 Imaging None recorded. Medication Orders progesteron e micronized 200 mg capsule 2022 023 [facility], [address], [place], [id number], 11:00:30 Patient TargetsNo targets recorded. Patient InstructionsNo instructions recorded. Reason for Referral None Reported. Results Created Date Observation Date Name Description Value Unit Range Abnormal Flag Note LastModifiedBy Organization Detail LastModifiedTime Result Notes None recorded. Problems Name Problem SNOMED Code Status Onset Date Resolution Date Notes Provider Name and Address Organization Details Recorded Time Radiologi c finding 026859479 Active 2019 Oth abn and inconclusi ve findings on dx imaging of breast;Rec orded Elsewhere: No Locatio n: [facility]: EHR Chroni c: N Practice ID: 0001 Billa ble Time: 09:45:00 AM Not Available [facility] 0 14:51:47 Replaceme nt of intrauter ine contracep tive device Active 2019 Encounter for reinsertio n of IUD;Record ed Elsewhere: No Locatio n: [facility]: EHR Chroni c: N Practice ID: 0001 Billa ble Time: 09:45:00 AM Not Available [facility] [address] 14:51:[address] Concept Active 2019 Encntr for nurse obgyn exam (general) (routine) w/o abn findings;R ecorded Elsewhere: No Locatio n: [facility]: EHR Chroni c: N Practice ID: 0001 Billa ble Time: 01:30:00 PM Not Available [facility] 0 14:51:47 Removal of intrauter ine device Active 2019 Encounter for removal of IUD;Record ed Elsewhere: No Locatio n: [facility]: EHR Chroni c: N Practice ID: 0001 Billa ble Time: 09:45:00 AM Not Available [facility] 0 14:51:47 Clinical finding Active 2019 Presence of (intrauter ine) contracept ruben device;Rec orded Elsewhere: No Locatio n: [facility]: EHR Chroni c: N Practice ID: 0001 Billa ble Time: 09:45:00 AM Not Available [facility] 0 14:51:47 Contracep tive sheath status 271946129 Active 2019 Encounter for routine checking of IUD;Record ed Elsewhere: No Locatio n: [facility]: EHR Chroni c: N Practice ID: 0001 Billa ble Time: 03:30:00 PM Not Available [facility] 0 14:51:47 test negative 097310691 Active 2019 Encounter for test, result negative;R ecorded Elsewhere: No Locatio n: [facility]: EHR Chroni c: N Practice ID: 0001 Billcurry ble Time: 09:45:00 AM Not Available [facility] 14:51:47 Problem Notes None recorded. Procedures Surgical History Date Name Laterality Status Provider Name and Address Organization Details Recorded Time 02/09/20 23 SALPINGECTOMY, LAPAROSCOPIC (SURG) completed Daylin Granados [facility] 04/11/2023 18:20:00 07/13/19 23 HYSTEROSCOPY, WITH ENDOMETRIAL ABLATION (SURG) completed [facility] 07/13/2022 10:25:14 07/13/19 23 HYSTEROSCOPY, WITH ENDOMETRIAL ABLATION (SURG) completed [facility] 07/13/2022 10:25:07 05/05/19 20 Date of Last Mammogram completed [facility] 04/30/2020 14:15:11 04/19/19 20 Date of Last Pap Smear completed [facility] 04/30/2020 14:13:27 extraction of wisdom tooth completed [facility] 04/06/2022 16:58:54 Tubal Ligation completed [facility] 02/14/2023 11:03:00 Endometrial Ablation completed [facility] 02/14/2023 11:03:00 Total Hysterectomy completed [facility] 10/18/2023 11:03:20 Imaging Results None recorded. Procedure Notes None recorded. Medical Equipment None Reported. Allergies No known drug allergies Medications Name Sig Start Date Stop Date Status Note LastModified by Organization Details LastModified Time Mirena 21 mcg/24 hr (up to 8 years) 52 mg intrauter ine device 02/14 completed Prescrib ed Elsewher e: Yes [facility] By: luis Pak nconoelleer DateTime : 04/25/19 09:45:00 AM Not Available Not Available Not Available clindamyc in HCl 300 mg capsule TAKE 1 CAPSULE BY MOUTH EVERY 6 HOURS FOR 5 DAYS 04/06 completed Not Available Not Available Not Available hydrocodo ne 5 mg-acetam inophen 325 mg tablet 10/17 completed Not Available Not Available Not Available oxycodone -acetamin ophen 5 mg-325 mg tablet 10/17 completed Not Available Not Available Not Available progester one micronize d 200 mg capsule TAKE ONE CAPSULE BY MOUTH DAILY 10/17 completed Not Available Not Available Not Available Vitamin D3 125 mcg (5,000 unit) tablet Take 1 capsule daily by mouth 04/06 completed Prescrib louise Paulino e: No Locat ion: [facility] odify By: cfrieder ich Jarochoo untjacki DateTime : 04/27/19 10:00:47 AM Not Available Not Available Not Available Vitals Date Recorded Body height Body mass index (BMI) Body weight Systolic blood pressure Diastolic blood pressure Provider Name and Address Organization Details Last Updated DateTime 11/24/2022 167.64 cm 36.5 kg/m2 492435.8 8 g 123 mm[Hg] 79 mm[Hg] [facility] 3 09:54:11 Date Recorded Body height Body mass index (BMI) Body weight Systolic blood pressure Diastolic blood pressure Provider Name and Address Organization Details Last Updated DateTime 01/11/2023 167.64 cm 36.5 kg/m2 282512.8 8 g 128 mm[Hg] 85 mm[Hg] [facility] 3 17:05:31 Date Recorded Body height Body mass index (BMI) Body weight Systolic blood pressure Diastolic blood pressure Provider Name and Address Organization Details Last Updated DateTime 02/14/2023 167.64 cm 35.8 kg/m2 541718.5 1 g 123 mm[Hg] 84 mm[Hg] [facility] 3 11:02:56 Date Recorded Body height Body mass index (BMI) Body weight Systolic blood pressure Diastolic blood pressure Provider Name and Address Organization Details Last Updated DateTime 10/18/2023 167.64 cm 36.6 kg/m2 040667.7 5 g 127 mm[Hg] 85 mm[Hg] Makenna Chanel [facility] 11:00:19 Social History Question Answer Notes LastModified by Organizat ion Details LastModified Time Tobacco Smoking Status Never Smoker Jayna Montano french [facility] 02/14/2023 10:05:24 What Is Your Level Of Alcohol Consumption? Occasional Information not available 04/06/2022 How Many Years Have You Consumed Alcohol? 23 Information not available 04/06/2022 Are You Blind Or Do You Have Difficulty Seeing? No Information n ot available 04/06/2022 What Is Your Level Of Caffeine Consumption? Heavy Information not available 04/06/2022 How Much Tobacco Do You Chew? None Information not available 04/06/2022 In The 14 Days Before Symptom Onset, Have You Had Close Contact With A Laboratory-confirm ed COVID-19 While That Case Was Ill? No Information n ot available 04/06/2022 In The 14 Days Before Symptom Onset, Have You Had Close Contact With A Person Who Is Under Investigation For COVID-19 While That Person Was Ill? No Information not available 04/06/2022 Have You Been To An Area Known To Be High Risk For COVID-19? No Information not available 04/06/2022 Are You Deaf Or Do You Have Serious Difficulty Hearing? No Information not available 04/06/2022 What Type Of Diet Are You Following? REGULAR Information n ot available 04/06/2022 What Is The Highest Grade Or Level Of School You Have Completed Or The Highest Degree You Have Received? 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 Yes Information not available 04/06/2022 Do You Use Protection During Sex? No Information not available 04/06/2022 Do You Use Your Seat Belt Or Car Seat Routinely? Yes Information not available 04/06/2022 Do You Have Smoke And Carbon Monoxide Detectors In Your Home? Yes Information not available 04/06/2022 How Much Tobacco Do You Smoke? No Information not available 04/06/2022 Do You Feel Stressed (tense, Restless, Nervous, Or Anxious, Or Unable To Sleep At Night)? [id number] Information not available 04/06/2022 Do You Use Any Illicit Or Recreational Drugs? No Information not available 04/06/2022 Do You Use Sunscreen Routinely? Yes Information not available 04/06/2022 Have You Used IV Drugs? No Information not available 04/06/2022 Sex: Unknown Functional Status Question Answer Note LastModified by Organizat ion Details LastModified Time Do you have difficulty walking or climbing stairs? No Information not available 02/14/2023 Are you able to walk? YESWOREST Information not available 04/06/2022 Are you able to care for yourself? Yes [email or web address] Information not available 02/14/2023 Do you have difficulty dressing or bathing? No [email or web address] Information not available 02/14/2023 What is your exercise level? Occasional Information not available 04/06/2022 Mental Status None recorded. Family History Relationship Description Onset Age of this Age Resolved Age Notes LastModified by Organization Details LastModified Time Paternal Grandmother Malignant tumor of breast [email or web address] Not available 2022 09:54:16 Paternal Grandmother Malignant tumor of ovary [email or web address] Not available 2022 09:54:16 Mother Hypertensive disorder [email or web address] Not available 2022 09:54:16 Maternal Uncle Malignant tumor of lung [email or web address] Not available 2022 09:54:16 Paternal Grandfather Myocardial infarction Not available 10/17 11:02:49 Paternal Grandfather Diabetes mellitus Not available 2023 11:02:58 Medical History Condition Response Allergies (Food, seasonal, environmental ) N Other N Breast Cancer N Drug/Latex Allergies/Reactions N Blood Transfusion N Dermatologic Disorders N Lung Disease N Defects or Inherited Disease N Breast Problem N Gestational Diabetes N Hematologic disorders N Anesthesia Complications N History of STI N Deep Vein Thrombosis N Polycystic ovary syndrome Y Anxiety Disorder N Autoimmune disease N Arthritis N Infertility N Polyps N Acid Reflux (GERD) N History of abnormal pap N Cancer N Stroke N Varicosities N Neurologic/Epilepsy N Endometriosis N High Cholesterol N Headaches N Fibromyalgia N Kidney Disease N Heart Problems Y Kidney or Bladder Problems N Thyroid Problems N GI Problems N Eating Disorder N Anemia Y Art (IVF or FET) N Psychiatric Illness N Ovarian Cancer N Diabetes N Pulmonary (TB, Asthma) N Hepatitis/Liver Disease N No Past Medical History N Eczema N Urinary Tract Infection N Abuse/Domestic Violence N Asthma N Trauma/Violence N Depression/ depression N Heart Disease N Pre-Eclampsia N Hypertension N Osteoporosis N Thrombophilias N Gynecological History Statement/Question Response Date of Last Mammogram 05/05/2019 Date of LMP 04/11/2020 N Was last menstrual period normal N STIs/STDs N HPV Vaccine Y Current Control Method Hysterectom y Age at First Child 24 Sexually Active? Y Menses Monthly N Age of first menstrual cycle 16 Date of Last Pap Smear 04/19/2019 Sexual Problems? N Desired Control Method Ablation LMP Unknown N Obstetrics History GPAL:G 3 P 3 0 0 3 Type Value Full Term 3 Living 3 Total 3 Past Encounters Encounter ID Performer Location Encounter Start Date Encounter Closed Date Diagnosis/Indication Diagnosis SNOMED-CT Code Diagnosis ICD10 Code Diagnosis Note [id number] [facility] [address] [address] 05/05/2020 09:26:11 05/05/2020 10:20:25 Gynecologic examination 82538816 Z01.419 Suggested Calcium with Vitamin D 1200-1500m g daily. Patient advised to get an annual flu shot in the fall and she could obtain at [facility] or [facility] care clinic. Also to obtain TDap vaccinatio n if you have not had one in the last 10 years. Recommend yearly mammograms . Encouraged monthly self breast exams. Encourage safe sexual practices, to use condoms and limit partners if not already in a monogamous relationsh ip. Engage in daily exercise of low impact aerobic exercise 45-60 minutes 4-5 times weekly. Avoid tobacco and illicit drugs as well as using moderation with alcohol intake less than 1-2 8 oz beverages daily. This lifestyle behavior pattern will lead to less health conditions and longer life span. If BMI greater than 25 weight watchers or dietary consult advised. All questions have been answered. Patient appears to understand informatio n, but if you have any questions please call or respond to this email. Additional precaution tesfaye measures were taken to minimize potential exposure to the Covid-19 virus during this patient s visit, including available hand program checker upon arrive, temperatur e check and being asked a series of screening questions. All staff wore face coverings during this encounter, as well as provided additional cleaning and sanitizing of all surfaces, including countertop s, pens, chairs, door handles, light switches, etc, prior to and following the patient s visit. [facility] [id number] Z30.9 04/25/2019 Mirena placed Strings present No issues. [id number] Sofia Morrissey [facility] [address],[facility] [address] 04/06/2022 16:38:45 04/07/2022 16:32:05 Pain in pelvis 04063575 R10.2 Update USIUD checkRight low abd/pelvic painIf BANQUET COORDINATOR US is WNL consider CT scan checking abd and refer to PCP. Patient is to contact office or go to nearest ED/Urgent care if fever >/= 100.1, pain, excessive bleeding, unusual drainage or swelling in area of concern; or experienci ng worsening sx's or new onset of concerning sx's. Understand ing verbalized . All questions answered to patient satisfacti on. Time spent in visit is a total of 22 mins with at least 50% of visit consisting of counseling and review of plan of care. [id number] Cleopatra Acuña [place] [address],[facility] [address] 04/07/2022 13:58:44 04/07/2022 16:02:47 Pain in pelvis 76225392 R10.[id number] [facility] [address],[facility] [address] 04/11/2022 12:11:07 04/11/2022 14:34:08 Gynecologic examination 71253184 Z01.419 Suggested Calcium with Vitamin D 1200-1500m g daily. Patient advised to get an annual flu shot in the fall and she could obtain at [facility] or [facility] clinic. Also to obtain TDap vaccinatio n if you have not had one in the last 10 years. Recommend yearly mammograms . Encouraged monthly self breast exams. Encourage safe sexual practices, to use condoms and limit partners if not already in a monogamous relationsh ip. Engage in daily exercise of low impact aerobic exercise 45-60 minutes 4-5 times weekly. Avoid tobacco and illicit drugs as well as using moderation with alcohol intake less than 1-2 8 oz beverages daily. This lifestyle behavior pattern will lead to less health conditions and longer life span. If BMI greater than 25 weight watchers or dietary consult advised. All questions have been answered. Patient appears to understand informatio n, but if you have any questions please call or respond to this email. Pap/hpv sentSTD Screen declinedGe netic Screen discussedC olon Screen PCPDexa Screen PCPRoutine Labs ordered, if abn will send to PCP to manageMamm o ordered Adult heal th examination 629201544 Z00.00 Screening mammography 24 546594 Z12.31 [id number] [facility] [address] [address] 05/16/2022 10:47:41 05/16/2022 11:41:05 Cyst of right ovary 6663863194 0191514 N83.[id number] [facility] [address] [address] 05/19/2022 14:54:35 05/19/2022 15:24:46 Cyst of right ovary 1770572523 8023724 N83.201 Today we reviewed US.B/c of the change in size on right side and still with on/off cramping we agreed to proceed with MD consult for additional input and recommenda tions moving forward. ryna is agreeable to this plan. Patient is to contact office or go to nearest ED/Urgent care if fever >/= 100.1, pain, excessive bleeding, unusual drainage or swelling in area of concern; or experienci ng worsening sx's or new onset of concerning sx's. Understand ing verbalized . All questions answered to patient satisfacti on. Time spent in visit is a total of 15 mins with at least 50% of visit consisting of counseling and review of plan of care. [id number] Nicko Mchugh MD [place] [address] [address] 06/02/2022 14:45:31 06/02/2022 16:01:35 Female sterilization 54092755 Z30.2 Cyst of right ovary 1223 187400 5237781 N83.291 Menorrhagia 804724699 N9 2.0 This patient is a 46-year-ol d female with severe menorrhagi a, unwanted fertility, and ovarian cyst that is painful. We agreed to perform laparoscop ic bilateral salpingect rayo and ovarian cystectomy along with hysterosco py and endometria l ablation. She understand s risks, benefits, and alternativ es. She has completed informed consent process is ready to proceed. [id number] Nicko Mchugh MD [place] [address] [address] 07/04/2022 10:21:41 07/05/2022 10:29:42 Cyst of ovary 42409275 N83.209 Female sterilization 608 45125 Z30.2 Menorrhagia 812902213 N9 2.0 This patient is a 46-year-ol d female with severe menorrhagi a, unwanted fertility, and ovarian cyst that is painful. We agreed to perform laparoscop ic bilateral salpingect rayo and right ovarian cystectomy along with hysterosco py and endometria l ablation. She understand s risks, benefits, and alternativ es. She has completed informed consent process is ready to proceed. [id number] Shayy Piper [place] [address],[place] [address] 07/13/2022 09:45:22 07/13/2022 09:50:41 [id number] Nicko Mchugh MD [place] [address] [address] 07/18/2022 17:06:34 07/19/2022 12:01:52 Postoperative care 781327944 Z48.89 this patient is a 46-year-ol d female presents for postop follow-up. she is 1 week postop from an endometria l ablation, laparoscop ic bilateral salpingect rayo and ovarian cystectomy . She is recovering normally. Her incisions are clean dry and intact. She has no complaints . She has a very normal recovery. She will follow-up as needed. [id number] Nicko Mchugh MD [place] [address] [address] 11/24/2022 09:31:58 11/24/2022 10:29:17 Menorrhagia 349568156 N92.0 This patient is a 47-year-ol d female with recurrent menorrhagi a after ablation. We discussed treatment options today. We spent more than 20 minutes face-to-fa ce. More than 50% was counseling . We made a decision to perform surgery. We agreed to proceed with hysterecto my. She has failed endometria l ablation. She has failed medical treatments . We agreed on definitive surgical treatment is the appropriat e treatment course. We talked about the procedure in detail. We talked about risk. She will return for preoperati ve visit and discussion of informed consent. [id number] Nicko Mchugh MD [place] [address] [address] 01/11/2023 16:53:21 01/12/2023 21:17:36 Abnormal uterine bleeding 4989836314 9100 N93.9 Menorrhagia 360906929 N9 2.0 this patient is a 47-year-ol d female with severe menorrhagi a. we have agreed perform total laparoscop ic hysterecto my. She understand s the risks, benefits, and alternativ es. She is completed the informed consent process and is ready to proceed. [id number] Nicko Mchugh MD [place] [address] [address] 02/14/2023 10:05:12 02/14/2023 11:45:01 Postoperative care 809600222 Z48.89 female Patient presents for postop follow-up. She is 1 week postop from a total laparoscop ic hysterecto Hayden has no complaints . Her incisions are clean dry and intact. She is recovering normally. She will follow-up as needed. [id number] Nicko Mchugh MD [place] [address] [address] 03/02/2023 11:37:45 03/02/2023 12:15:50 [id number] JODY Anderson [place] [address] [address] 10/18/2023 10:45:54 10/18/2023 12:27:44 Gynecologic examination 57422661 Z01.419 WWEno further paps needed d/t hyst for non-cancer ous indication sSTI screen declinedma mmogram UTDcolon cancer screening discussed, will obtain order through PCP It is strongly advised to have an annual flu shot and up can obtain at most pharmacies . If you have not had a TDap shot in the last 10 years you should obtain one as well. Discussed with patient & provided with informatio n regarding the HPV vaccine if applicable . Encourage safe sexual practices, to use condoms and limit partners if not already in a monogamous relationsh ip. Do monthly self breast exams. BRCA testing is now available for patients with strong genetic history of female cancer. If interested contact the office. Engage in regular exercise. Avoid tobacco and illicit drugs This lifestyle behavior pattern will lead to less health conditions and longer life span. If BMI greater than 25 dietary consult advised. Patient received above instructio ns, and questions have been answered. Health Concerns Section Related Observation LastModified by Organization Detai ls LastModified Time None Recorded Concern Status LastModified by Organization Details LastModified Time None Recorded Advance Directives Directive None Recorded Payers Encounter Date Sequence Insurance Name Policy Number Policy Terrell Covered Member ID Terrell Member ID Guarantor Name 11/24/2022 1 [facility] [employer] [id number] Alistair Laureano [id number] OI Corry Laureano 01/11/2023 1 [facility] [employer] [id number] Alistair Laureano [id number] OI Corry Laureano 02/08/2023 1 [facility] [employer] PLAN [id number] Alistair Laureaon [id number] OI Corry Laureano 02/14/2023 1 [facility] BENEFITS [facility] [id number] Alistair Laureano [id number] OI Corry Juan Luisporfirio 10/18/2023 1 [facility] BENEFITS [facility] [id number] Alistair Laureano [id number] OI Corry Mcknightporfirio Notes Date Note Type Note Provider Name and Address Organization Details Recorded Time 11/24/2022 text/html This patient is a 47-year-old female with recurrent menorrhagia after ablation. We discussed treatment options today. We spent more than 20 minutes [id number]. More than 50% was counseling. We made a decision to perform surgery. We agreed to proceed with hysterectomy. She has failed endometrial ablation. She has failed medical treatments. We agreed on definitive surgical treatment is the appropriate treatment course. We talked about the procedure in detail. We talked about risk. She will return for preoperative visit and discussion of informed consent. Nicko Mchugh MD [address], [place], [address], , P.C[facility] 11/24/2022 10:33:19 01/11/2023 text/html This patient is a 47-year-old female with severe menorrhagia. We have agreed to perform total laparoscopic hysterectomy. The patient understands the procedure. The procedure was described to the patient in great detail. the patient also understands the risks. The risks were also explained in detail. She understands that injuries May occur during surgery. She understands these injuries can result in hospitalization, more surgery, and severe illness. She understands there is risk of hemorrhage and infection. Nicko Mchugh MD [address], [place], [address], , P[facility] 01/12/2023 19:14:04 02/14/2023 text/html female Patient presents for postop follow-up. She is 1 week postop from a total laparoscopic hysterectomyShe has no complaints. Her incisions are clean dry and intact. She is recovering normally. She will follow-up as needed. Nicko Mchugh MD [address], [place], [address], , [facility] 02/14/2023 11:40:09 10/18/2023 text/html Annual GYNReport ed bypatient.Urinary symptoms:No hematuria; No incontinence Vulva:No genital lesion Vagina:Normal vaginal discharge Breast:No breast pain; No breast lump; No nipple discharge Current Contraception:TLH Sexual complaints:No sexual complaints; No pain during intercourse; Normal libido Menopausal Symptoms:No menopausal symptoms; Normal vaginal lubrication Psychological symptoms:No depression; No anxiety; No PMDD Preventive measures:Encourage self breast examination; Encourage regular exercise; Encourage no tobacco use; Encourage regular mammograms starting age 42Notes:48yo WWETLH 2022 for AUB / non-cancerous indications. Ovaries remainno h/o abnormal papslast pap 03/2022 : nilm, HPV (-)mammogram 06/2023no colon cancer screening done yet JODY Anderson [address], [place], [address], [facility] 10/18/2023 12:26:41 OBGyn Episode Ob Episode Information Episode Created Date Number of Fetuses Patient Bloodtype Patient rh Status Prepregnancy Weight lbs Domestic Partner Domestic Partner Phone Father Name Hand Stoner Status 10/18/19 1 CLOSED Fetus Data First Name Last Name Admitted to NICU Weight (g) Sex Living Outcome Pediatric Complications Fetus ID Race Codes Race Delivery Type 3175.14 4 F Full Term [id number] Lázaro Calculation Initial Lázaro Date Initial Exam Date Initial Exam Provider Initial Ultrasound Date Last Menstrual Period Date Ultra Sound Weeks Gestation 0 Eighteen To Twenty Week Lázaro Update Ultra Sound Date Fundal Height At Umbil Quickening Date Ultra Sound Latest Weeks Gestation Final Lázaro Confirmed By Final Lázaro Confirmed Date Final Lázaro Date Ultra Sound Latest Days Gestation 0 0 Menstrual History Last Menstrual Date Menses Monthly On Bcp Conception Prior Menses Frequency Hcg Plus Date Menarche Onset Age Delivery Information Delivery Date Delivery Type Labor Anesthesia Weeks Gestation Incision Type Labor Labor Length Hrs Delivered By Post Complications Tubal Sterilization Discharge Date Comments 9 Discharge Information Feeding Method Contraceptive Method Maternal HG B and HCT Levels Ob Episode Information Episode Created Date Number of Fetuses Patient Bloodtype Patient rh Status Prepregnancy Weight lbs Domestic Partner Domestic Partner Phone Father Name Hand Stoner Status 10/18/19 24 1 CLOSED Fetus Data First Name Last Name Admitted to NICU Weight (g) Sex Living Outcome Pediatric Complications Fetus ID Race Codes Race Delivery Type 3430.06 2704 F Full Term [id number] Vaginal Delivery Lázaro Calculation Initial Lázaro Date Initial Exam Date Initial Exam Provider Initial Ultrasound Date Last Menstrual Period Date Ultra Sound Weeks Gestation 0 Eighteen To Twenty Week Lázaro Update Ultra Sound Date Fundal Height At Umbil Quickening Date Ultra Sound Latest Weeks Gestation Final Lázaro Confirmed By Final Lázaro Confirmed Date Final Lázaro Date Ultra Sound Latest Days Gestation 0 0 Menstrual History Last Menstrual Date Menses Monthly On Bcp Conception Prior Menses Frequency Hcg Plus Date Menarche Onset Age Delivery Information Delivery Date Delivery Type Labor Anesthesia Weeks Gestation Incision Type Labor Labor Length Hrs Delivered By Post Complications Tubal Sterilization Discharge Date Comments 5 Discharge Information Feeding Method Contraceptive Method Maternal HG B and HCT Levels Ob Episode Information Episode Created Date Number of Fetuses Patient Bloodtype Patient rh Status Prepregnancy Weight lbs Domestic Partner Domestic Partner Phone Father Name Hand Stoner Status 10/18/19 24 1 CLOSED Fetus Data First Name Last Name Admitted to NICU Weight (g) Sex Living Outcome Pediatric Complications Fetus ID Race Codes Race Delivery Type 3259.96 5704 F Full Term [id number] Vaginal Delivery Lázaro Calculation Initial Lázaro Date Initial Exam Date Initial Exam Provider Initial Ultrasound Date Last Menstrual Period Date Ultra Sound Weeks Gestation 0 Eighteen To Twenty Week Lázaro Update Ultra Sound Date Fundal Height At Umbil Quickening Date Ultra Sound Latest Weeks Gestation Final Lázaro Confirmed By Final Lázaro Confirmed Date Final Lázaro Date Ultra Sound Latest Days Gestation 0 0 Menstrual History Last Menstrual Date Menses Monthly On Bcp Conception Prior Menses Frequency Hcg Plus Date Menarche Onset Age Delivery Information Delivery Date Delivery Type Labor Anesthesia Weeks Gestation Incision Type Labor Labor Length Hrs Delivered By Post Complications Tubal Sterilization Discharge Date Comments 0 Discharge Information Feeding Method Contraceptive Method Maternal HG B and HCT Levels
--- OUTSIDE RECORDS SUMMARY | 2024-07-10 09:08 | XMS_ITS | Encounter Summary ---
Author Organization [facility] Address [address] [place] [address] Care Team Providers Care Staff Midwife Name Role Phone Carlos Farrar DO Primary Care Provider [phone] Encounter Details Date Type Department Care Team (Late st Contact Info) Description 01/05/2024 Lab Requisition [facility] - DermPath Lab [address] [place] [phone] Mikayla Bansal PA [address] [place] [phone] Neoplasm of uncertain behavior of skin Social History Tobacco Use Types Packs/Day Years Used Date Smoking Tobacco: Never Assessed Comments Unknown Sex and Gender Information Value Date Recorded Sex Assigned at Not on file Legal Sex Female 1:01 PM CDT Gender Identity Not on file Sexual Orientation Not on file documented as of this encounter Plan of Treatment Not on file documented as of this encounter Procedures Procedure Name Priority Date/Time Associated Diagnosis Comments DERMATOPATHOLOGY Routine 01/05/2024 12:0 0 AM CDT Neoplasm of uncertain behavior of skin documented in this encounter Results * DERMATOPATHOLOGY (01/05/2024 12:00 AM CDT) Case Report Dermatopathology Report Case: [id number] Authorizing Provider: Mikayla Bansal PA Collected: 01/05/2024 12:00 AM Ordering Location: [facility] - Received: 01/08/2024 12:40 PM DermPath Lab Pathologist: Cynthia Knott MD Specimen: Skin, left posterior thigh 2:01 PM T DERMATOPATHOLOGY LABORATORY Final Diagnosis Specimen A. 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 The specimen consists of a shave biopsy measuring 6x5x1 mm. Jar 0. 2:01 PM T DERMATOPATHOLOGY LABORATORY Microscopic Description Specimen A. SKIN, left posterior thigh: This is a junctional nevus. There is melanin pigment in the stratum corneum. There is a lentiginous proliferation of melanocytes between nests of cells along the dermal-epidermal junction. 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 2:01 PM T DERMATOPATHOLOGY LABORATORY Disclaimer An external and internal positive and negative controls are appropriate for the histochemical, immunohistochemical and immunofluorescence stain(s) in this case (if any), except where stated explicitly. The performance characteristics of the stain(s) cited in this report were developed and its performance characteristic determined by the Dermatopathology Laboratory at [facility], directed by Dr. Villa Knott. These tests need not be, and therefore are not, approved by the [place] Food and Drug Administration. The tests are used for clinical purposes. Billing Codes Specimen Charges Stain Charges 53752 1 2:01 PM CDT DERMATOPATHOLOGY LABORATORY Embedded Images 2:01 PM CDT DERMATOPATHOLOGY LABORATORY Pathology/Cytolog y TISSUE SPECIMEN FROM SKIN / Unknown 01/05/2024 01/08/2024 12:40 PM CDT [facility] - PATHOLOGY/CYTOLOGY OR DERABLES Final Result DERMATOPATHOLOGY LABORATORY [facility] - Department of [facility]atology [facility] [address] [place] [address], [address] [phone] documented in this encounter Visit Diagnoses Diagnosis Neoplasm of uncertain behavior of skin documented in this encounter Care Teams Staff Midwife Relationship Specialty Start Date End Date Carlos Farrar DO [address] [place] [address] PCP - General 07/26/22 documented as of this encounter
--- OUTSIDE RECORDS SUMMARY | 2024-07-10 09:08 | XMS_ITS | Clinical Summary ---
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 Gender Identity Not on file Sexual Orientation Not on file Plan of Treatment Health Maintenance Due Date Last Done Comments Cervical Cancer Screening Pa p Smear (Age 30 to 64) Every 3 Years 1977 Colorectal Cancer Screening Colonoscopy (10 Years) 1977 Annual Physical 1980 Hepatitis C 09/24/1995 DTaP, Tdap and Td Vaccines ( 1 - Tdap) 1996 Hepatitis B Vaccines (1 of 3 - 19+ 3-dose series) 1996 Cervical Cancer Screening Pa p with HPV Testing (Age 30 to 64) Every 5 Years 09/24/2007 Cervical Cancer Screening with HPV 09/24/2007 Mammogram Screening 2017 COVID-19 Vaccine (2023-2 5 season) 2023 Meningococcal B Vaccine Aged Out No l onger eligible based on patient's age to complete this topic Meningococcal Vaccine Aged Out No kaitlyn fawad eligible based on patient's age to complete this topic Pneumococcal Vaccine: Pediat rics (0 to 5 Years) and At-Risk Patients (6 to 49 Years) Aged Out No longer eligible b ased on patient's age to complete this topic RSV Immunizations Under 20 Months Aged Out No longer eligible based on patient's age to complete this topic
== END 2024-07-10 08:46 | disposition home or self-care (01) ==
PROVIDERS: PCP Nurse Practitioner Family; Visit Provider Nurse Practitioner Family
DX: Z12.31 Encounter for screening mammogram for malignant neoplasm of breast (principal)
CPT/HCPCS: 77063; 77067

== ENCOUNTER 2024-12-09 11:04 | Outpatient (CLI) | payer OTHER, SELFPAY ==
[2024-12-09 11:36] LABS: Alanine Aminotransferase 22 U/L (6-35); Albumin Level 4.4 g/dL (3.5-5.1); Alkaline Phosphatase 78 U/L (38-126); Anion Gap 8 mmol/L (4-12); Aspartate Amino Transferase 24 U/L (14-36); Bilirubin,Total 0.4 mg/dL (0.2-1.3); Blood Urea Nitrogen 8 mg/dL (7-17); Calcium 9.5 mg/dL (8.4-10.2); Carbon Dioxide 29 mmol/L (22-30); Chloride 103 mmol/L (98-107); Estimated Glomerular Filt Rate > 60; Glucose 105 mg/dL (65-110); Osmolality Calculated 288 mOsm/kg (285-295); Potassium 4.2 mmol/L (3.4-5.0); Sodium 140 mmol/L (137-145); Total Protein 8.6 g/dL (6.3-8.2)
[2024-12-09 13:06] LABS: Hematocrit 40.3 % (35.0-49.0); Hemoglobin 13.3 g/dL (12.0-15.0); Immature Granulocyte Percent A 0.6 % (0.0-0.0); Lymphocytes Absolute Auto 2.38 K/mm3 (1.10-4.50); Mean Corpuscular HGB Conc 33.0 g/dL (32-36); Mean Corpuscular Hemoglobin 28.7 pg (27.0-31.0); Mean Corpuscular Volume 87.0 fL (78.0-102.0); Nucleated Red Blood Cells Absolute Auto 0.00 K/mm3 (0.00-0.00); Nucleated Red Blood Cells Perc 0.0 % (0-0.0); Platelet Count Result 307 K/mm3 (150-420); Red Blood Count 4.63 M/mm3 (4.20-5.40); White Blood Count 10.5 K/mm3 (4.8-10.8)
[2024-12-09 13:07] LABS: Add Urine Microscopic? NO; Appearance Urine Clear (Clear); Glucose Urine UA Negative (Negative); Leukocyte Esterase Ur Negative LEU/UL (Negative); Nitrate Urine Negative (Negative); Specific Grav Ur 1.010 (1.010-1.020)
--- OUTSIDE RECORDS SUMMARY | 2024-12-09 13:09 | XMS_ITS | Clinical Summary ---
Author Organization [facility] Address [address] [place] [address] Care Team Providers Care Vending Machine Coin Collector Name Role Phone Carlos Farrar DO Primary Care Provider [phone] Source Comments [facility],non-owned Affiliates and Associated Physician Practices is amultiple site organization consisting of ambulatory clinics and hospital sitesin [place], [place], [place] and [place]. This disclosure is being madepursuant to the Care Everywhere program and may not contain all information available regarding this patient. Last updated 17.[facility] Social History Tobacco Use Types Packs/Day Years [...] SCREENING 1977 LIPID TESTING 1977 MAMMOGRAM 1977 HIV SCREENING 1992 HEPATITIS C SCREENING 09/19/1995 DTAP/TDAP/TD VACCINES (1 - Tdap) 1996 HEPATITIS B VACCINE (1 of 3 - 19+ 3-dose series) 1996 PAP SMEAR 1998 DEPRESSION SCREENING 03/27/2024 COVID-19 VACCINE (2023-2 5 season) 2024 INFLUENZA VACCINE (#1) 2024 ZOSTER VACCINE (1 of 2) 09/24/2027 [...] patient's age to complete this topic Insurance [address] [place], [place] [address] Care Teams Vending Machine Coin Collector Relationship Specialty Start Date End Date Carlos Farrar DO [address] [place], [place] [id number] PCP - General 07/26/22
--- OUTSIDE RECORDS SUMMARY | 2024-12-09 13:09 | XMS_ITS | Encounter Summary ---
Author Organization [facility] Address [address] [place] [address] Care Team Providers Care Croze Machine Operator Name Role Phone Cralos Farrar DO Primary Care Provider [phone] Encounter Details Date Type Department Care Team (Late st Contact Info) Description 01/05/2024 Lab Requisition [facility] - DermPath Lab [address] [place] [phone] Mikayla Bansal PA [address] [place] [address] Neoplasm of uncertain behavior of skin Social [...] AM CDT) Case Report Dermatopathology Report Case: [id number] Authorizing Provider: Mikayla Bansal PA Collected: 01/05/2024 12:00 AM Ordering Location: [facility] - Received: 01/08/2024 12:40 PM DermPath Lab Pathologist: Cynthia Knott MD Specimen: Skin, left posterior thigh 2:01 PM CDT DERMATOPATHOLOGY LABORATORY Final Diagnosis Specimen A. 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 2:01 PM CDT DERMATOPATHOLOGY LABORATORY Disclaimer An external and internal positive and negative controls are appropriate for the histochemical, immunohistochemical and immunofluorescence stain(s) in this case (if any), except where stated explicitly. The performance characteristics of the stain(s) cited in this report were developed and its performance characteristic determined by the Dermatopathology Laboratory at [facility], directed by Dr. Villa Knott. These tests need not be, and therefore are not, approved by the [place] Food and Drug Administration. The tests are used for clinical purposes. Billing Codes Specimen Charges Stain Charges 81458 1 2:01 PM CDT DERMATOPATHOLOGY LABORATORY Embedded Images 2:01 PM CDT DERMATOPATHOLOGY LABORATORY Pathology/Cytolog y TISSUE SPECIMEN FROM SKIN / Unknown 01/05/2024 01/08/2024 12:40 PM CDT [facility] - PATHOLOGY/CYTOLOGY OR DERABLES Final Result DERMATOPATHOLOGY LABORATORY [facility] - Department of [facility]atology [facility] [address] [place] [address], [address] [phone] documented in this encounter Visit Diagnoses Diagnosis Neoplasm of uncertain behavior of skin documented in this encounter Care Teams Croze Machine Operator Relationship Specialty Start Date End Date Carlos Farrar DO [address] [place] [address] PCP - General 07/26/22 documented as of this encounter
--- OUTSIDE RECORDS SUMMARY | 2024-12-09 13:10 | XMS_ITS | Clinical Summary ---
Author Organization 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
[2024-12-09 13:41] LABS: CRP 0.6 mg/dL (<1.0)
[2024-12-09 15:45] LABS: Lipase 58 U/L (23-300)
[2024-12-09 15:58] LABS: Troponin I < 0.012 ng/mL (0.000-0.034)
== END 2024-12-09 11:05 | disposition home or self-care (01) ==
LOC: CHSLAB 11:06
PROVIDERS: PCP Nurse Practitioner Family; Visit Provider Nurse Practitioner Family
DX: R07.1 Chest pain on breathing (principal); R10.9 Unspecified abdominal pain
CPT/HCPCS: 36415; 80053; 81003; 83690; 84484; 85025; 86140

== ENCOUNTER 2024-12-10 15:24 | Outpatient (CLI) | payer OTHER, SELFPAY ==
--- NOTE | ~2024-12-10 | CT_ITS ---
EXAMINATION: CT abdomen w con DATE: 12/10/2024 15:54 INDICATION: Unspecified abdominal pain. TECHNIQUE: Computed tomography (CT) of the abdomen was performed with 100 mL Omnipaque 350 intravenous contrast. Automated exposure control and iterative reconstruction technique were employed. The dose-length product was 369.60 mGy-cm. COMPARISON: None. FINDINGS: The visualized portions of the lung bases demonstrate minimal atelectasis in right middle lobe. No pleural effusion. The heart size is normal. No pericardial effusion. There is a small sliding hiatal hernia. The liver is normal. The gallbladder is contracted. The spleen, pancreas, adrenal glands, and kidneys are normal. There are no dilated loops of bowel. The appendix is normal. There are no pathologically enlarged lymph nodes. There is no free intraperitoneal fluid. There is severe lower lumbar spondylosis. IMPRESSION: 1. Small sliding hiatal hernia. Reviewed, dictated and finalized at location E.
--- OUTSIDE RECORDS SUMMARY | 2024-12-10 16:41 | XMS_ITS | Clinical Summary ---
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
--- OUTSIDE RECORDS SUMMARY | 2024-12-10 16:41 | XMS_ITS | Encounter Summary ---
Author Organization [facility] Address [address] [place] [address] Care Team Providers Care Pt Skilled Name Role Phone Carlos Farrar DO Primary Care Provider [phone] Encounter Details Date Type Department Care Team (Late st Contact Info) Description 01/05/2024 Lab Requisition [facility] - DermPath Lab [address] [place] [phone] Mikayla Bansal PA [address] [place] [address] Neoplasm of uncertain behavior of [...] AM CDT) Case Report Dermatopathology Report Case: [id number] Authorizing Provider: Mikayla Bansal PA Collected: 01/05/2024 12:00 AM Ordering Location: [facility] Physician [facility] - Received: 01/08/2024 12:40 PM DermPath [...] characteristic determined by the Dermatopathology Laboratory at [facility], directed by Dr. Villa Knott. These tests need not be, and therefore are not, approved by the [place] Food and Drug Administration. The tests are used for clinical purposes. Billing Codes Specimen Charges Stain Charges 03123 1 2:01 PM CDT DERMATOPATHOLOGY LABORATORY Embedded Images 2:01 PM CDT DERMATOPATHOLOGY LABORATORY Pathology/Cytolog y TISSUE SPECIMEN FROM SKIN / Unknown 01/05/2024 01/08/2024 12:40 PM CDT [facility] - PATHOLOGY/CYTOLOGY OR DERABLES Final Result DERMATOPATHOLOGY LABORATORY [facility] - Department of Dermatology [facility] [address] [place] [address], [address] [phone] documented in this encounter Visit Diagnoses Diagnosis Neoplasm of uncertain behavior of skin documented in this encounter Care Teams Pt Skilled Relationship Specialty Start Date End Date Carlos Farrar DO [address] [place] [address] PCP - General 07/26/22 documented as of this encounter
--- OUTSIDE RECORDS SUMMARY | 2024-12-10 16:41 | XMS_ITS | Clinical Summary ---
Author Organization [facility] [employer] Address [address] [place] [address] Care Team Providers Care Magnetic Tester Name Role Phone Carlos Farrar DO Primary Care Provider Source Comments [facility] [employer],non-owned Affiliates and Associated Physician Practices is amultiple site organization consisting of ambulatory clinics and hospital sitesin [place] and [place]. This disclosure is being madepursuant to the Care Everywhere program and may not contain all information available regarding this patient. Last updated 17.[facility] [employer] [facility] Social History Tobacco Use Types Packs/Day Years [...] patient's age to complete this topic Insurance [address] [place], [place] [id number] Care Teams Magnetic Tester Relationship Specialty Start Date End Date Carlos Farrar DO [address] [place], [place] [phone] PCP - General 07/26/22
== END 2024-12-10 15:25 | disposition home or self-care (01) ==
PROVIDERS: PCP Nurse Practitioner Family; Visit Provider Nurse Practitioner Family
DX: R10.9 Unspecified abdominal pain (principal); K44.9 Diaphragmatic hernia without obstruction or gangrene
CPT/HCPCS: 74160; Q9967